=== PATIENT | female | born 2000 | race Caucasian/White ===

== ENCOUNTER 2021-08-07 11:43 | Day surgery (SDC) | payer OTHER ==
[2021-08-06 13:45] LABS: COVID AG,FIA SOURCE NASAL SWAB
[~2021-08-07 11:43] MED LIST: ESCI-8 PO; FAMO20 PO; LORA10TA7 PO; SODIUM CHLORIDE 0.9% 1,000 ML ONE; SUMA100T PO
[2021-08-07] MEDS ORDERED: PROPOFOL 1% 20 ML VIAL IVP ONE (12:00)
[2021-08-07] MEDS ORDERED: SODIUM CHLORIDE 0.9% 1,000 ML IV ONE (12:30)
== END 2021-08-07 16:45 | disposition home or self-care (01) ==
LOC: SURGERY 11:43
PROVIDERS: ATTEND Internal Medicine Gastroenterology
DX: R10.84 Generalized abdominal pain (principal); E66.01 Morbid (severe) obesity due to excess calories; F41.8 Other specified anxiety disorders; I10 Essential (primary) hypertension; G43.909 Migraine, unspecified, not intractable, without status migrainosus; Z79.899 Other long term (current) drug therapy; Z98.890 Other specified postprocedural states; Z90.3 Acquired absence of stomach [part of]; Z68.43 Body mass index [BMI] 50.0-59.9, adult; Z87.442 Personal history of urinary calculi
CPT/HCPCS: 45378; 84703; 87426; C9803; J2704; J7030